=== PATIENT | male | born 1995 | race Caucasian/White ===

== ENCOUNTER 2024-12-22 17:22 | Emergency (ER) | payer SELFPAY ==
[2024-12-22] MEDS: Lidocaine 1% 10 ML MDV INJECT ONE (17:43)
== END 2024-12-22 18:18 | disposition home or self-care (01) ==
LOC: JP.ED 17:22
DX: S60.351A Superficial foreign body of right thumb, initial encounter (principal); W45.8XXA Other foreign body or object entering through skin, initial encounter
CPT/HCPCS: 10120; 99283; J2003